=== PATIENT | male | born 1940 | race Caucasian/White ===

== ENCOUNTER 2022-10-03 04:35 | Inpatient (IN) | payer MEDICARE, OTHER ==
[2022-10-03 07:03] VITALS: BMI 27.1
[2022-10-03] MEDS ORDERED: Acetaminophen 325 MG TAB PO PRN (08:16)
[2022-10-03] MEDS ORDERED: Sodium Chloride 0.9% 500 ML IV SCH (08:30)
[2022-10-03] MEDS ORDERED: Diltiazem 125 MG in Sodium Chloride 0.9% 100 ML IVPB SCH (09:00)
[2022-10-03] MEDS: Sodium Chloride 0.9% 1,000 ML IV SCH (09:03)
[2022-10-03] MEDS: Hydrocortisone Sod Succ/PF 100 mg/2 ml Vial IVP SCH ×3 (09:06→20:02)
[2022-10-03] MEDS: Gabapentin 300 MG CAP PO SCH ×3 (09:09→20:01)
[2022-10-03] MEDS: Famotidine 20 MG TAB PO SCH ×2 (09:10→20:02)
[2022-10-03] MEDS: Timolol 0.25% Ophth Soln 5 ml Bottle EA EYE SCH (09:42)
[2022-10-03] MEDS ORDERED: Iopamidol 370 76% 100 ML VIAL ONE (13:41)
[2022-10-03] MEDS: Latanoprost 0.005% Ophth Soln 2.5 ml Bottle EA EYE SCH (20:10)
[2022-10-04] MEDS: Sodium Chloride 0.9% 1,000 ML IV SCH ×2 (00:43→15:06)
[2022-10-04] MEDS: Timolol 0.25% Ophth Soln 5 ml Bottle EA EYE SCH (08:11)
[2022-10-04] MEDS: Gabapentin 300 MG CAP PO SCH ×3 (08:11→20:16)
[2022-10-04] MEDS: Famotidine 20 MG TAB PO SCH ×2 (08:12→20:15)
[2022-10-04] MEDS: predniSONE 1 MG TAB PO SCH (08:12)
[2022-10-04] MEDS: Hydrocortisone Sod Succ/PF 100 mg/2 ml Vial IVP SCH (08:13)
[2022-10-04] MEDS: Diltiazem 125 MG in Sodium Chloride 0.9% 100 ML IVPB SCH (08:33)
[2022-10-04 12:02] LABS: Anion Gap 10 mmol/L (10-20); BUN (Urea Nitrogen) 20 mg/dL (8.4-25.7); Calc. Creatinine Clearance 91 mL/min (70-130); Calcium 7.1 mg/dL (7.8-10.44); Carbon Dioxide 19 mmol/L (23-31); Chloride 116 mmol/L (98-107); Estimated GFR 89; Glucose 123 mg/dL (83-110); Potassium 3.1 mmol/L (3.5-5.1); Sodium 142 mmol/L (136-145)
[2022-10-04 12:19] LABS: Mean Corpuscular HGB CONC 32.7 g/dL (32.0-36.0); Mean Corpuscular Hemoglobin 32.4 pg (27.0-31.0); Mean Corpuscular Volume 99.1 fl (78.0-98.0); Mean Platelet Volume 8.5 fL (7.4-10.4); Platelet Count 158 10x3/uL (130-400); RBC Distribution Width 12.1 % (11.5-14.5); White Blood Cell (WBC) Count 5.6 10x3/uL (4.8-10.8)
[2022-10-04 12:20] LABS: Band 3 % (5-11); Lymphocytes 14 % (21-51); MDiff Complete? YES; Monocytes 3 % (0-10); Neutrophil 78 % (42-75); Platelet Morphology Comment Appears Adequate; Polychromasia SLIGHT = 2-3 cells (100X) (0-2/hpf)
[2022-10-04] MEDS: Apixaban 5 MG TAB PO SCH (20:15)
[2022-10-04] MEDS: Latanoprost 0.005% Ophth Soln 2.5 ml Bottle EA EYE SCH (20:17)
[2022-10-05] MEDS: Sodium Chloride 0.9% 1,000 ML IV SCH (04:22)
[2022-10-05] MEDS ORDERED: Potassium Chloride 20 MEQ TAB PO SCH (08:00)
[2022-10-05] MEDS: Apixaban 5 MG TAB PO SCH ×2 (08:48→22:09)
[2022-10-05] MEDS: Famotidine 20 MG TAB PO SCH ×2 (08:49→22:11)
[2022-10-05] MEDS: Gabapentin 300 MG CAP PO SCH ×3 (08:49→22:09)
[2022-10-05] MEDS: predniSONE 1 MG TAB PO SCH (08:50)
[2022-10-05] MEDS: Timolol 0.25% Ophth Soln 5 ml Bottle EA EYE SCH (08:50)
[2022-10-05] MEDS: Diltiazem 125 MG in Sodium Chloride 0.9% 100 ML IVPB SCH (08:51)
[2022-10-05] MEDS: Latanoprost 0.005% Ophth Soln 2.5 ml Bottle EA EYE SCH (22:09)
[2022-10-06] MEDS ORDERED: Metoprolol Tartrate 5 MG/5 ML VIAL IVP SCH (04:15)
[2022-10-06] MEDS: Sodium Chloride 0.9% 1,000 ML IV SCH ×3 (05:02→13:32)
[2022-10-06] MEDS: predniSONE 1 MG TAB PO SCH (08:38)
[2022-10-06] MEDS: Apixaban 5 MG TAB PO SCH ×2 (08:38→19:48)
[2022-10-06] MEDS: Gabapentin 300 MG CAP PO SCH ×3 (08:39→19:48)
[2022-10-06] MEDS: Timolol 0.25% Ophth Soln 5 ml Bottle EA EYE SCH (08:39)
[2022-10-06] MEDS: Famotidine 20 MG TAB PO SCH ×2 (08:39→19:48)
[2022-10-06 13:41] LABS: #Eosinphils 0.2 thou/uL (0.0-0.7); #Lymphocytes 2.2 thou/uL (1.20-3.40); #Monocytes 0.8 thou/uL (0.11-0.59); #Neutrophils 5.5 thou/uL (1.40-6.50); %Basophils 0.5 % (0.0-1.0); %Eosinophils 1.9 % (0.0-10.0); %Lymphocytes 25.1 % (21.0-51.0); %Monocytes 8.9 % (0.0-10.0); %Neutrophils 63.6 % (42.0-75.0); Hemoglobin 13.1 g/dL (14.0-18.0); Mean Corpuscular HGB CONC 32.2 g/dL (32.0-36.0); Mean Corpuscular Hemoglobin 32.1 pg (27.0-31.0); Mean Corpuscular Volume 99.7 fl (78.0-98.0); Mean Platelet Volume 7.9 fL (7.4-10.4); Platelet Count 179 10x3/uL (130-400); RBC Distribution Width 12.1 % (11.5-14.5); Red Blood Cell (RBC) Count 4.08 mill/uL (4.70-6.10); White Blood Cell (WBC) Count 8.6 10x3/uL (4.8-10.8)
[2022-10-06 13:57] LABS: Anion Gap 14 mmol/L (10-20); BUN (Urea Nitrogen) 15 mg/dL (8.4-25.7); Calc. Creatinine Clearance 79 mL/min (70-130); Carbon Dioxide 17 mmol/L (23-31); Chloride 110 mmol/L (98-107); Estimated GFR 80; Glucose 87 mg/dL (83-110); Potassium 3.9 mmol/L (3.5-5.1); Sodium 137 mmol/L (136-145)
[2022-10-06] MEDS: Latanoprost 0.005% Ophth Soln 2.5 ml Bottle EA EYE SCH (19:49)
[2022-10-06] MEDS: Ibuprofen 200 MG TAB PO PRN (19:53)
[2022-10-07] MEDS: Sodium Chloride 0.9% 1,000 ML IV SCH ×2 (03:09→11:09)
[2022-10-07] MEDS: Ibuprofen 200 MG TAB PO PRN (08:30)
[2022-10-07] MEDS: predniSONE 1 MG TAB PO SCH (08:31)
[2022-10-07] MEDS: Apixaban 5 MG TAB PO SCH ×2 (08:31→20:48)
[2022-10-07] MEDS: Famotidine 20 MG TAB PO SCH ×2 (08:31→20:49)
[2022-10-07] MEDS: Gabapentin 300 MG CAP PO SCH ×3 (08:31→20:50)
[2022-10-07] MEDS: Timolol 0.25% Ophth Soln 5 ml Bottle EA EYE SCH (08:51)
[2022-10-07] MEDS ORDERED: Lidocaine 1% PF 5 ML VIAL ONE (09:13)
[2022-10-07] MEDS ORDERED: Ketamine 50 MG/ML (10ML VIAL) ONE (09:37)
[2022-10-07] MEDS ORDERED: Midazolam HCl 2 mg/2 ml Vial ONE (09:37)
[2022-10-07] MEDS ORDERED: Ondansetron PF 4 MG/2 ML Vial ONE (10:05)
[2022-10-07] MEDS: Flecainide 50 MG TAB PO SCH ×2 (11:09→20:49)
[2022-10-07] MEDS ORDERED: Timolol 0.25% Ophth Soln 5 ml Bottle EA EYE SCH (11:15)
[2022-10-07] MEDS ORDERED: Furosemide 40 MG TAB PO SCH (11:15)
[2022-10-07] MEDS: Brimonidine Tartrate 0.2% Ophth Soln 5 ml Bottle EA EYE SCH (20:47)
[2022-10-07] MEDS: Timolol 0.5% Ophth Soln 5 ml Bottle EA EYE SCH (20:50)
[2022-10-07] MEDS: Topiramate 25 MG TAB PO SCH (20:50)
[2022-10-07] MEDS: Latanoprost 0.005% Ophth Soln 2.5 ml Bottle EA EYE SCH (20:51)
[2022-10-08] MEDS: Sodium Chloride 0.9% 1,000 ML IV SCH (00:42)
[2022-10-08] MEDS ORDERED: Furosemide 40 MG/4 ML VIAL SLOW IVP SCH (09:15)
[2022-10-08] MEDS: Brimonidine Tartrate 0.2% Ophth Soln 5 ml Bottle EA EYE SCH ×2 (09:23→20:23)
[2022-10-08] MEDS: predniSONE 1 MG TAB PO SCH (09:23)
[2022-10-08] MEDS: Famotidine 20 MG TAB PO SCH ×2 (09:23→20:22)
[2022-10-08] MEDS: Loratadine 10 MG TAB PO SCH (09:24)
[2022-10-08] MEDS: Flecainide 50 MG TAB PO SCH ×2 (09:24→20:22)
[2022-10-08] MEDS: Apixaban 5 MG TAB PO SCH ×2 (09:24→20:21)
[2022-10-08] MEDS: Gabapentin 300 MG CAP PO SCH ×3 (09:24→20:22)
[2022-10-08] MEDS: Ibuprofen 200 MG TAB PO PRN (09:28)
[2022-10-08] MEDS: Timolol 0.5% Ophth Soln 5 ml Bottle EA EYE SCH ×2 (09:38→20:23)
[2022-10-08] MEDS ORDERED: Spironolactone 25 MG TAB PO SCH (09:45)
[2022-10-08] MEDS: Polyethylene Glycol 3350 17 GM Packet PO PRN ×2 (10:29→20:36)
[2022-10-08 10:40] LABS: Anion Gap 12 mmol/L (10-20); BUN (Urea Nitrogen) 17 mg/dL (8.4-25.7); Calc. Creatinine Clearance 76 mL/min (70-130); Calcium 9.1 mg/dL (7.8-10.44); Carbon Dioxide 25 mmol/L (23-31); Chloride 106 mmol/L (98-107); Estimated GFR 76; Glucose 123 mg/dL (83-110); Potassium 3.9 mmol/L (3.5-5.1); Sodium 139 mmol/L (136-145)
[2022-10-08] MEDS: Furosemide 40 MG/4 ML VIAL SLOW IVP SCH (15:52)
[2022-10-08] MEDS: Topiramate 25 MG TAB PO SCH (20:22)
[2022-10-08] MEDS: Latanoprost 0.005% Ophth Soln 2.5 ml Bottle EA EYE SCH (20:23)
[2022-10-09] MEDS: Furosemide 40 MG/4 ML VIAL SLOW IVP SCH ×2 (06:03→14:24)
[2022-10-09] MEDS: predniSONE 1 MG TAB PO SCH (08:14)
[2022-10-09] MEDS: Flecainide 50 MG TAB PO SCH ×2 (08:14→21:31)
[2022-10-09] MEDS: Famotidine 20 MG TAB PO SCH ×2 (08:14→21:31)
[2022-10-09] MEDS: Spironolactone 25 MG TAB PO SCH (08:14)
[2022-10-09] MEDS: Apixaban 5 MG TAB PO SCH ×2 (08:14→21:30)
[2022-10-09] MEDS: Loratadine 10 MG TAB PO SCH (08:14)
[2022-10-09] MEDS: Brimonidine Tartrate 0.2% Ophth Soln 5 ml Bottle EA EYE SCH ×2 (08:15→21:31)
[2022-10-09] MEDS: Gabapentin 300 MG CAP PO SCH ×3 (08:15→21:30)
[2022-10-09] MEDS: Timolol 0.5% Ophth Soln 5 ml Bottle EA EYE SCH ×2 (08:15→21:31)
[2022-10-09] MEDS: Polyethylene Glycol 3350 17 GM Packet PO PRN (08:24)
[2022-10-09] MEDS ORDERED: Metolazone 5 MG TAB PO SCH (08:30)
[2022-10-09] MEDS ORDERED: Senokot S 8.6-50 MG TAB PO SCH (15:15)
[2022-10-09] MEDS ORDERED: Bisacodyl 10 MG SUPP PR SCH (18:15)
[2022-10-09] MEDS: Topiramate 25 MG TAB PO SCH (21:29)
[2022-10-09] MEDS: Senokot S 8.6-50 MG TAB PO SCH (21:30)
[2022-10-09] MEDS: Latanoprost 0.005% Ophth Soln 2.5 ml Bottle EA EYE SCH (21:31)
[2022-10-10] MEDS: Furosemide 40 MG/4 ML VIAL SLOW IVP SCH (05:44)
[2022-10-10 09:01] VITALS: BP 135/73; TEMP 98.4
[2022-10-10] MEDS: Gabapentin 300 MG CAP PO SCH (09:14)
[2022-10-10] MEDS: Flecainide 50 MG TAB PO SCH (09:14)
[2022-10-10] MEDS: Apixaban 5 MG TAB PO SCH (09:14)
[2022-10-10] MEDS: Famotidine 20 MG TAB PO SCH (09:15)
[2022-10-10] MEDS: Spironolactone 25 MG TAB PO SCH (09:15)
[2022-10-10] MEDS: Loratadine 10 MG TAB PO SCH (09:16)
[2022-10-10] MEDS: Brimonidine Tartrate 0.2% Ophth Soln 5 ml Bottle EA EYE SCH (09:16)
[2022-10-10] MEDS: Senokot S 8.6-50 MG TAB PO SCH (09:17)
[2022-10-10] MEDS: predniSONE 1 MG TAB PO SCH (09:17)
[2022-10-10] MEDS: Timolol 0.5% Ophth Soln 5 ml Bottle EA EYE SCH (09:18)
[2022-10-11] MEDS ORDERED: Apixaban 5 MG TAB PO SCH (21:00)
== END 2022-10-10 12:00 | disposition home or self-care (01) | DRG 308 ==
LOC: 2SW 04:35 → OBSVTOIN 08:26
PROVIDERS: ADMIT Student in an Organized Health Care Education/Training Program; ATTEND Family Medicine
PROC: 5A2204Z Restoration of Cardiac Rhythm, Single (ICD-10-PCS; principal; 2022-10-07)
PROC: B246ZZ4 Ultrasonography of Right and Left Heart, Transesophageal (ICD-10-PCS; 2022-10-07)
DX: I48.0 Paroxysmal atrial fibrillation (principal); I26.99 Other pulmonary embolism without acute cor pulmonale; J81.0 Acute pulmonary edema; J96.01 Acute respiratory failure with hypoxia; I82.431 Acute embolism and thrombosis of right popliteal vein; N17.9 Acute kidney failure, unspecified; I13.0 Hypertensive heart and chronic kidney disease with heart failure and stage 1 through stage 4 chronic kidney disease, or unspecified chronic kidney disease; I48.21 Permanent atrial fibrillation; K74.60 Unspecified cirrhosis of liver; E78.5 Hyperlipidemia, unspecified; M06.9 Rheumatoid arthritis, unspecified; I95.9 Hypotension, unspecified; M35.3 Polymyalgia rheumatica; N18.30 Chronic kidney disease, stage 3 unspecified; E87.70 Fluid overload, unspecified; E86.0 Dehydration; I50.9 Heart failure, unspecified; Z90.79 Acquired absence of other genital organ(s); Z90.49 Acquired absence of other specified parts of digestive tract; Z98.890 Other specified postprocedural states; Z88.0 Allergy status to penicillin; Z79.899 Other long term (current) drug therapy; Z79.82 Long term (current) use of aspirin; Z85.46 Personal history of malignant neoplasm of prostate; Z82.49 Family history of ischemic heart disease and other diseases of the circulatory system; Z20.822 Contact with and (suspected) exposure to COVID-19
CPT/HCPCS: 36415; 71045; 71046; 71275; 76705; 80048; 85025; 92960; 93005; 93010; 93306; 93312; J1650; J1720; J1940; J2250; J2405; J3490; J7030; J7050; J7512; Q9967; U0003; U0005